=== PATIENT | female | born 1990 | race Caucasian/White ===

== ENCOUNTER 2022-07-27 19:24 | Emergency (ER) | payer MEDICAID ==
[~2022-07-27] VITALS: Ht 162.6 cm; Wt 62.3 kg
[2022-07-27 20:52] VITALS: BP 139/92
[2022-07-27] MEDS ORDERED: dexamethasone sod phosphate 10mg/ml inj PO STA (21:56)
[2022-07-27] MEDS ORDERED: cephalexin 500mg capsule PO ONE (22:00)
[2022-07-27] MEDS ORDERED: HYDR28CR14 TOP (22:01)
[2022-07-27] MEDS ORDERED: CEPH250T PO (22:01)
== END 2022-07-27 22:47 | disposition home or self-care (01) ==
LOC: ER 19:26
DX: R21 Rash and other nonspecific skin eruption (principal); Z88.0 Allergy status to penicillin
CPT/HCPCS: 99283; J1100; 99284

== ENCOUNTER 2022-10-02 00:46 | Emergency (ER) | payer MEDICAID ==
[~2022-10-02] VITALS: Ht 162.6 cm; Wt 63.6 kg
[~2022-10-02 00:46] MED LIST: HYDR28CR14 TOP
[2022-10-02 01:00] VITALS: BP 127/84; PULSE 115; RESP 18; TEMP 98.8; O2SAT 97
[2022-10-02] MEDS ORDERED: MUPI22OI30 TOP (02:05)
[2022-10-02] MEDS ORDERED: SULF1TAB49 PO (02:05)
== END 2022-10-02 02:12 | disposition home or self-care (01) ==
LOC: ER 00:46
DX: S80.862A Insect bite (nonvenomous), left lower leg, initial encounter (principal); S80.861A Insect bite (nonvenomous), right lower leg, initial encounter; S40.862A Insect bite (nonvenomous) of left upper arm, initial encounter; S40.861A Insect bite (nonvenomous) of right upper arm, initial encounter; S10.96XA Insect bite of unspecified part of neck, initial encounter; Z79.899 Other long term (current) drug therapy; W57.XXXA Bitten or stung by nonvenomous insect and other nonvenomous arthropods, initial encounter; Y93.89 Activity, other specified; Y92.89 Other specified places as the place of occurrence of the external cause; Y99.8 Other external cause status
CPT/HCPCS: 99283